=== PATIENT | female | born 1975 | race Two or more races ===

== ENCOUNTER 2018-02-07 10:49 | Emergency (ER) | payer OTHER ==
[2018-02-07 11:30] LABS: ADD MAN DIFF? NO
[2018-02-07 11:34] LABS: BASO # 0.1 x10^3/uL (0.0-0.2); BASO % 1 % (0-3); EOS # 0.1 x10^3/uL (0.0-0.7); EOS % 1 % (0-3); HEMATOCRIT 35.2 % (36.0-47.0); HEMOGLOBIN 11.5 g/dL (12.0-15.5); LYMPH # 2.1 x10^3/uL (1.0-4.8); LYMPH % 31 % (24-48); MEAN CORPUSCULAR HEMOGLOBIN 28 pg (25-35); MEAN CORPUSCULAR HGB CONC 33 g/dL (31-37); MEAN CORPUSCULAR VOLUME 84 fL (79-100); MONO # 0.5 x10^3/uL (0.0-1.1); MONO % 7 % (0-9); NEUT # 4.2 x10^3uL (1.8-7.7); NEUT % 61 % (31-73); PLATELET COUNT 296 x10^3/uL (140-400); RED BLOOD COUNT 4.19 x10^6/uL (3.50-5.40); RED CELL DISTRIBUTION WIDTH 14.6 % (11.5-14.5)
[2018-02-07 11:43] LABS: ANION GAP 12 (6-14); BLOOD UREA NITROGEN 8 mg/dL (7-20); BUN/CREATININE RATIO 11 (6-20); CALCIUM 8.4 mg/dL (8.5-10.1); CARBON DIOXIDE 23 mmol/L (21-32); CHLORIDE 106 mmol/L (98-107); CREATININE 0.7 mg/dL (0.6-1.0); GFR 91.3; GLUCOSE 97 mg/dL (70-99); POTASSIUM 3.8 mmol/L (3.5-5.1); SODIUM 141 mmol/L (136-145)
[2018-02-07 11:49] LABS: ALBUMIN 3.5 g/dL (3.4-5.0); ALBUMIN/GLOBULIN RATIO 0.8 (1.0-1.7); ALK PHOS 66 U/L (46-116); ALT (SGPT) 24 U/L (14-59); AST (SGOT) 19 U/L (15-37); TOTAL BILIRUBIN 0.3 mg/dL (0.2-1.0); TOTAL PROTEIN 7.8 g/dL (6.4-8.2)
[2018-02-07 11:59] LABS: NEG OBC SER NEG; POS OBC SER POS; PREG TEST PT QUAL NEGATIVE (NEG)
[2018-02-07] MEDS: IV NORMAL SALINE 1000ML BAG 1,000 ML IV ×2 (12:08→14:00)
[2018-02-07] MEDS: ONDANSETRON PF 4 MG/2 ML VIAL. IV (12:11)
[2018-02-07] MEDS: fentaNYL PF VIAL 100 MCG/2 ML VIAL IV (12:12)
[2018-02-07 13:32] LABS: URINE HCG POC HCG NEGATIVE (Negative)
[2018-02-07] MEDS ORDERED: IV NORMAL SALINE 1000ML BAG 1,000 ML IV (14:15)
== END 2018-02-07 15:45 | disposition home or self-care (01) ==
LOC: ER 10:49
DX: R42 Dizziness and giddiness (principal); R51 Headache; M54.2 Cervicalgia; R05 Cough
CPT/HCPCS: 36415; 80053; 81025; 84703; 85025; 93005; 96361; 96374; 96375; 99285-25; J2405; J3010; J7030

== ENCOUNTER 2020-07-08 10:30 | Emergency (ER) | payer OTHER ==
[~2020-07-08] VITALS: Ht 152.4 cm; Wt 57.0 kg
[2020-07-08 11:03] VITALS: BP 100/63
[2020-07-08] MEDS ORDERED: IBUPROFEN 400 MG TABLET. PO ONE (11:30)
[2020-07-08] MEDS ORDERED: ACETAMINOPHEN 500 MG TABLET PO ONE (11:30)
[2020-07-08 11:46] LABS: BILIRUBIN,URINE NEGATIVE (NEG); CLARITY,URINE CLEAR; COLOR,URINE YELLOW; NITRITE,URINE NEGATIVE (NEG); PROTEIN,URINE NEGATIVE (NEG-TRACE); UROBILINOGEN,URINE 0.2 mg/dL (0.2 mg/dL)
[2020-07-08 11:53] LABS: BACTERIA,URINE MODERATE /HPF (0-FEW); WBC,URINE 20-40 /HPF (0-4)
--- NOTE | 2020-07-08 12:05 | RAD ---
CHEST AP ONLY History: Reason: fever PUI / Spl. Instructions: / History: Comparison: None. Findings: No consolidation or pleural effusion. Normal heart size. No pneumothorax. Impression: 1. No acute cardiopulmonary process. Electronically signed by: Jonathan Peter DO (07/08/2020 12:02 PM) [id number]
[2020-07-08 12:11] LABS: INFLUENZA A PATIENT NEGATIVE (NEGATIVE); INFLUENZA B PATIENT NEGATIVE (NEGATIVE)
[2020-07-08] MEDS ORDERED: CEPH-264 PO (12:55)
--- NOTE | 2020-07-08 12:56 | ED.ADGEN ---
Past Medical History Past Medical History: No Pertinent History Past Surgical History: No Surgical History Smoking Status: Never Smoker Alcohol Use: None Drug Use: None General Adult EDM: Chief Complaint: FEVER HPI: HPI: Patient is a 44 year old female who presents to the emergency department with complaints of a fever, body aches, and fatigue since yesterday. She denies any cough, shortness of breath, sore throat, nasal congestion, back pain, dysuria, hematuria, increased urinary frequency, abdominal pain, nausea, vomiting, diarrhea, or chest pain. The patient did report a dry cough and nasal congestion to the nurse, however, during my evaluation the patient denies ever having these symptoms. She also denies any known exposure to COVID-19. She states she has not taken anything for her fever since yesterday. Patient is [id number] therefore the patient's daughter translated for the patient via telephone. Review of Systems: Review of Systems: Complete ROS is negative unless otherwise noted in HPI. Current Medications: Current Medications Medications (Trade) Dose Ordered Sig/[facility] Start Time Stop Time Status Last Admin Dose Admin Acetaminophen (Tylenol) 1,000 mg 1X ONCE 07/08/20 11:30 07/08/20 11:31 DC 07/08/20 12:41 1,000 MG Ibuprofen (Motrin) 400 mg 1X ONCE 07/08/20 11:30 07/08/20 11:31 DC 07/08/20 12:41 400 MG Allergies: Allergies: Allergies Coded Allergies Type Severity Reaction Last Updated Verified No Known Drug Allergies 02/07/18 No Physical Exam: PE: See Above Constitutional: Well developed, well nourished, no acute distress, non-toxic appearance. [] HENT: Normocephalic, atraumatic, bilateral external ears normal, nose normal. [] Eyes: PERRLA, EOMI, conjunctiva normal, no discharge. [] Neck: Normal range of motion, no stridor. [] Cardiovascular:Heart rate regular rhythm Lungs & Thorax: Respirations even and unlabored, no retractions, no respiratory distress Abdomen: soft, no tenderness Skin: Flushed, hot, dry, no rash Extremities: No cyanosis, ROM intact, no edema. [] Neurologic: Alert and oriented X 3, no focal deficits noted. [] Psychologic: Affect normal, judgement normal, mood normal. [] Current Patient Data: Labs: Laboratory Tests Test 07/08/20 11:35 07/08/20 11:37 Urine Collection Type Void Urine Color Yellow Urine Clarity Clear Urine pH 6.0 (<5.0-8.0) Urine Specific [place] 1.015 (1.000-1.030) Urine Protein Negative mg/dL (NEG-TRACE) Urine Glucose (UA) Negative mg/dL (NEG) Urine Ketones (Stick) Negative mg/dL (NEG) Urine Blood Small (NEG) Urine Nitrite Negative (NEG) Urine Bilirubin Negative (NEG) Urine Urobilinogen Dipstick 0.2 mg/dL (0.2 mg/dL) Urine Leukocyte Esterase Moderate (NEG) Urine RBC 3-5 /HPF (0-2) Urine WBC 20-40 /HPF (0-4) Urine Squamous Epithelial Cells Few /LPF Urine Bacteria Moderate /HPF (0-FEW) Urine Mucus Mod /LPF Influenza Type A Antigen Negative (NEGATIVE) Influenza Type B Antigen Negative (NEGATIVE) POC Urine HCG, Qualitative Hcg negative (Negative) Vital Signs: Vital Signs Date Time Temp Pulse Resp B/P (MAP) Pulse Ox O2 Delivery O2 Flow Rate FiO2 07/08/20 11:03 102.1 81 16 100/63 (75) 99 Room Air 102.1 EKG: EKG: [] Heart Score: Risk Factors: Risk Factors: DM, Current or recent (<one month) smoker, HTN, HLP, family history of CAD, obesity. Risk Scores: Score 0 - 3: 2.5% MACE over next 6 weeks - Discharge Home Score 4 - 6: 20.3% MACE over next 6 weeks - Admit for Clinical Observation Score 7 - 10: 72.7% MACE over next 6 weeks - Early Invasive Strategies Radiology/Procedures: Radiology/Procedures: PROCEDURE: CHEST AP ONLY CHEST AP ONLY History: Reason: fever PUI / Spl. Instructions: / History: Comparison: None. Findings: No consolidation or pleural effusion. Normal heart size. No pneumothorax. Impression: 1. No acute cardiopulmonary process.[] Course & Med Decision Making: Course & Med Decision Making Pertinent Labs and Imaging studies reviewed. (See chart for details) 44-year-old female presents emergency room with complaints of fever, body aches, and fatigue that started yesterday. Urinalysis is concerning for urinary tract infection with 20-40 white blood cells, few squamous cells, and moderate bacteria. Rapid influenza testing is negative. The patient's chest x-ray is unremarkable. COVID-19 test is pending. The patient was given a gram of Tylenol and 600 mg of ibuprofen in the emergency room for treatment of her fever. She was advised that the COVID-19 results will not be available for at least 48 hours. Patient was provided with quarantine instructions and advised to follow these instructions. Alternate Tylenol and ibuprofen as needed for fever. Prescription written for Keflex. Encouraged patient to increase clear fluids, avoid bladder irritants and follow- up with her primary care doctor in 1 to 2 days. COVID-19 CRITERIA: The patient was evaluated during the global COVID-19 pandemic, and that diagnosis was suspected/considered upon their initial presentation. Their evaluation, treatment and testing was consistent with current guidelines for patients who present with complaints or symptoms that may be related to COVID-19. [] Dragon Disclaimer: Dragon Disclaimer: This electronic medical record was generated, in whole or in part, using a voice recognition dictation system. Departure Departure Impression: Primary Impression: Fever Additional Impressions: Urinary tract infection Person under investigation for COVID-19 Disposition: 01 DC HOME SELF CARE/HOMELESS Condition: STABLE Referrals: NO PCP (PCP) Patient Instructions: Fever, Adult, [id number], Urinary Tract Infection, [id number] Additional Instructions: Fill prescription(s) and use as directed. Avoid bladder irritants such as caffeine, carbonation, and spicy foods. Increase clear fluids. Alternate Tylenol and ibuprofen as needed for pain. Follow up with your primary care doctor in 1 to 2 days, return to the ER if symptoms worsen. You have been tested for or diagnosed with COVID-19. It is an infection caused by a new type of coronavirus. COVID-19 will cause cold-like or mild flu symptoms in most. It can cause more severe symptoms like problems breathing in some. There is no treatment for COVID-19. The body will clear the infection over time. Self-care will help to ease discomfort. Steps to Take: Self-Care Rest as needed. Healthy habits may help you feel better. Steps include: Choose healthy foods including fruits and vegetables. Drink water throughout the day. Get plenty of sleep each night. If you smoke, try to quit. It may ease breathing. Avoid alcohol. Keep Others Healthy The virus can spread to others. Droplets are released every time you sneeze or cough. The droplets can get into the mouth, nose, or eyes of people near you and lead to infection. To lower the chances of spreading COVID-19 to others: Stay at home until your doctor has said it is safe to leave. If you tested positive this will mean staying isolated until both of the following are true: At least 7 days have passed since the start of illness. You are free of fever for at least 72 hours without the use of medicine. During this time: - Avoid public areas, events, or transportation. Do not return to work or school until your doctor has said it is safe to do so. - Call ahead if you need to go to a medical center. Let them know you may have COVID-19. It will help them guide you where to go. They may also ask you to wear a facemask when you come to the office. - If you call for emergency medical services, let them know you may have COVID- 19. While at home: - Try to avoid close contact with others. Stay about 6 feet away. - If possible, spend most of your time in a separate room from others. - Use a face mask if you will be in close contact with others such as sharing a room or vehicle. - Have someone wipe down common surfaces in the home. Use household laser machine operator every day on areas like doorknobs, counters, or sinks. - Cough or sneeze into a tissue. Throw the tissue away right after use. If a tissue is not available, cough or sneeze into your elbow. - Wash your hands often. Wash them after sneezing or coughing. Use soap and water and wash for at least 20 seconds. Alcohol based hand housecleaner can be used if soap and water is not available. - Do not prepare food for others. Avoid sharing personal items like forks, spoons, or toothbrushes. - Avoid close contact with pets while you are sick. There is no evidence of the virus passing to pets. This is a safety step until more is known about this virus. Isolation can be frustrating. Social interaction can help. Keep in touch with friends and family through phone and tech options. You can still interact with others in your home, just keep a safe distance of about 6 feet. Follow-up: Your doctors office will check in with you to see if there are any changes in your health. You may be asked to keep track of symptoms to share with them. They will also let you know when you are clear to be in public again. Problems to Look Out For: Contact your doctor if your recovery is not going as you expect. Get emergency care if you have problems such as: - Trouble breathing - Nonstop chest pain or pressure - Changes in awareness, confusion, or problems waking - Lips or face have bluish color - Worsening of symptoms If you think you have an emergency, call for emergency medical services right away. As taken from [facility] [address] [place] [address] [facility] [address] [place] [address] [facility] [address] [facility] [place] [address] [facility] [address] [place] [address] [facility] [address] [place] [address] [facility] [address] [place] [address] [facility] [address] [place] [address] [facility] [address] [place] [address] [facility] [address] [place] [address] [facility] [address] [place] [address] Scripts Cephalexin (KEFLEX) 500 Mg Capsule 500 MG PO BID for 7 Days, #14 CAP 0 Refills Prov: TARYN NIETO PRESS OFFICER 07/08/20 COVID-19 Assessment: COVID-19 Patient Risks: Age 65 or older: No Sign of co-morbidity: No Exp to person + for COVID: No Exp to PUI: No Travel from affected area: No Lower respiratory symptoms: No Fever: Yes PPE Use: Full PPE with N95 mask or PAPR: Yes Problem Qualifiers Primary Impression: Fever Fever type: unspecified Qualified Codes: R50.9 - Fever, unspecified Additional Impressions: Urinary tract infection Urinary tract infection type: site unspecified Hematuria presence: without hematuria Qualified Codes: N39.0 - Urinary tract infection, site not sp ecified TARYN NIETO APRN Jul 08, 2020 12:56
--- NOTE | 2020-07-11 14:53 | NUR ---
IP: Informed pt of negative COVID test. Pt verbalized understanding.
== END 2020-07-08 13:35 | disposition home or self-care (01) ==
LOC: ER 10:30
DX: R50.9 Fever, unspecified (principal); N39.0 Urinary tract infection, site not specified; Z20.828 Contact with and (suspected) exposure to other viral communicable diseases
CPT/HCPCS: 71045; 81001; 81025; 87086; 87804; 99284; C9803; U0003